=== PATIENT | female | born 1940 | race Caucasian/White ===

== ENCOUNTER → 2016-09-12 | Outpatient (CLI) | payer OTHER ==
--- NOTE | 2016-09-13 07:38 | MAMMOGRAPHY REPORT ---
BILATERAL DIGITAL SCREENING MAMMOGRAM WITH CAD: 09/12/2016 CLINICAL HISTORY: Routine screening examination. TECHNIQUE: Bilateral CC and MLO views were obtained. Current study was also evaluated with a Comput er Aided Detection (CAD) system. COMPARISON: Comparison is made to exams dated: 09/06/2015 mammogram, 08/05/2013 mammogram, 09/01/2014 mammogram, 07/29/2012 mammogram, 07/13/2011 ultrasound - [facility], and 07/11/2010 [facility] mogram. BREAST COMPOSITION: The tissue of both breasts is heterogeneously dense, which may obscure small ma sses. FINDINGS: There is a lobulated asymmetry in the lateral right breast that appears somewhat similar compared to prior mammograms. However, additional spot compression tomosynthesis views and possibly ultrasound are recommended to exclude an underlying mass. A vague 14 mm asymmetry in the inferior left breast on the MLO view may simple represent normal overlapping tissue. However, spot compressi on tomosynthesis views and possibly ultrasound are recommended. No other suspicious mass, architectural distortion or cluster of microcalcifications is seen. IMPRESSION: ACR BI-RADS CATEGORY 0: INCOMPLETE EVALUATION: NEED ADDITIONAL IMAGING EVALUATION The bilateral asymmetries need additional imaging evaluation. The patient will be called to schedule an appointment. Approximately 10% of breast cancers are not detected with mammography. A negative mammographic repor t should not delay biopsy if a clinically suggestive mass is present. Lamar Gurrola M.D. ay/:09/12/2016 18:03:39 House Cleaner: Leah DEE(Clarissa)(Demetrio), [facility] letter sent: Addl Imaging 0 BI-RADS Code: ACR BI-RADS Category 0: Incomplete Evaluation: Need Additional Imaging Evaluation
== END | disposition home or self-care (01) ==
LOC: C.MAMM 09:19
PROVIDERS: ATTEND Nurse Practitioner Family
DX: Z12.31 Encounter for screening mammogram for malignant neoplasm of breast (principal); N64.89 Other specified disorders of breast

== ENCOUNTER → 2016-09-25 | Outpatient (CLI) | payer OTHER ==
--- NOTE | 2016-09-25 13:55 | MAMMOGRAPHY REPORT ---
BILATERAL DIGITAL DIAGNOSTIC MAMMOGRAM TOMOSYNTHESIS AND TARGETED BILATERAL ULTRASOUND: 09/25/2016 CLINICAL HISTORY: 76-year-old woman called back from screening mammography for bilateral asymmetries . TECHNIQUE: Spot compression 2-D digital and tomosynthesis right CC, right MLO and left MLO views wer e obtained. COMPARISON: Comparison is made to exams dated: 09/12/2016 mammogram, 09/06/2015 mammogram, and 09/01/19 15 mammogram - [facility]. BREAST COMPOSITION: The tissue of both breasts is heterogeneously dense, which may obscure small ma sses. FINDINGS: The spot compression MLO view of the left inferior breast demonstrates effacement of the a symmetry seen on the 09/12/2016 screening mammogram. The glandular tissue in that area reverts back to the baseline parenchymal pattern. There is no evidence for persistent mass, focal architectural distortion or suspicious calcifications. Further evaluation with ultrasound was performed. Spot compression views of the right breast demonstrate a partially circumscribed and partially obscu red 6.9 mm mass in the upper outer anterior breast. When comparing back to prior available mammogra ms, this appearance is similar dating back to at least 07/11/2010 and likely 07/06/2008, therefore l ikely benign. There is no focal architectural distortion or suspicious microcalcifications in the r ight breast. Further evaluation with ultrasound was performed. Real-time high resolution sonographic evaluation was performed throughout the right breast including the retroareolar breast, and also throughout the inferior left breast. In the left inferior breast , normal fibroglandular tissue is seen without a discrete solid or cystic mass. In the right 10:00 to 11:00 axes, there is dense fibroglandular tissue. In the 10:00 axis, 2 cm from the nipple, appro ximately 1 cm deep to the dermis, there is an isoechoic solid mass measuring 8.3 x 6.6 mm. This lik elvia correlates with the stable mammographic mass and most likely represents a fibroadenoma. No othe r suspicious solid or cystic mass is identified. IMPRESSION: ACR-BI-RADS CATEGORY 3: PROBABLY BENIGN, TARGETED ULTRASOUND ACR-BI-RADS CATEGORY 3: [place] OBABLY BENIGN 1. Effacement of the inferior left breast asymmetry, no suspicious sonographic correlate. This mos t likely represented normal overlapping fibroglandular tissue. No further follow-up is needed at th is time. 2. Partial effacement of the asymmetry in the upper outer quadrant of the right breast, with better visualized borders of an underlying partially circumscribed and obscured 7 mm mass seen mammographi olga. This is thought to correlate with a benign-appearing solid mass in the 10:00 right breast, 2 cm from the nipple seen on ultrasound. In retrospect, this mass has been stable on all available m ammograms dating back to at least 2007, therefore considered benign. 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 No other suspicious mass is s een in the adjacent right upper outer quadrant mammographically or sonographically. Nevertheless, a short interval follow-up right mammogram including tomosynthesis images and possible repeat ultraso und is recommend to ensure stability in 6 months. These results and recommendations were discussed with the patient at the time of the exam. Approximately 10% of breast cancers are not detected with mammography. A negative mammographic repor t should not delay biopsy if a clinically suggestive mass is present. Lamar Gurrola M.D. ay/:09/25/2016 12:14:23 Hvac Sheet Metal Installer: Leah DEE(Clarissa)(Demetrio), [facility] letter sent: Follow Up Recommended 3 BI-RADS Code: ACR-BI-RADS Category 3: Probably Benign Ultrasound BI-RADS: ACR-BI-RADS Category 3: P robably Benign
== END | disposition home or self-care (01) ==
LOC: C.MAMM 10:20
PROVIDERS: ATTEND Nurse Practitioner Family
DX: N64.89 Other specified disorders of breast (principal)

== ENCOUNTER → 2017-03-29 | Outpatient (CLI) | payer OTHER ==
--- NOTE | 2017-03-29 12:38 | MAMMOGRAPHY REPORT ---
UNILATERAL RIGHT DIGITAL DIAGNOSTIC MAMMOGRAM TOMOSYNTHESIS WITH CAD: 03/29/2017 CLINICAL HISTORY: Short interval follow-up of right breast mass/asymmetry. The patient reports no cu rrent complaints. TECHNIQUE: Breast tomosynthesis in addition to standard 2D mammography was performed. Current study was also evaluated with a Computer Aided Detection (CAD) system. Right CC and MLO 2-D and tomosynthe sis images were obtained. COMPARISON: Comparison is made to exams dated: 09/25/2016 mammogram, 09/25/2016 ultrasound, 09/12/2016 m ammogram, 09/06/2015 mammogram, 09/01/2014 mammogram, and 08/05/2013 mammogram - [facility]. BREAST COMPOSITION: The tissue of the right breast is heterogeneously dense, which may obscure small masses. FINDINGS: There are no suspicious masses, calcifications, or areas of architectural distortion noted in the right breast. There has been no significant interval change compared to prior exams. Oval p artially circumscribed and partially obscured 9 mm mass within the right upper outer quadrant is stab le mammographically dating back to at least the 2007 exam, and considered benign given long-term stab ility. Scattered benign-appearing calcifications are stable. IMPRESSION: ACR BI-RADS CATEGORY 2: BENIGN Partially circumscribed mass in the right upper outer quadrant is stable dating back to 2007, and con sidered benign given long-term stability. There is no mammographic evidence of malignancy in the rig ht breast. Return to annual mammogram screening schedule is recommended, due September 2017. The patient has been verbally notified of the results. Approximately 10% of breast cancers are not detected with mammography. A negative mammographic report should not delay biopsy if a clinically suggestive mass is present. Janell Saleh M.D. /:03/29/2017 10:40:01 Paint Formulator: Lisa DEE(Clarissa)(Demetrio), [facility] letter sent: Normal 1/2 BI-RADS Code: ACR BI-RADS Category 2: Benign
== END | disposition home or self-care (01) ==
LOC: C.MAMM 10:17
PROVIDERS: ATTEND Nurse Practitioner Family
DX: N63 Unspecified lump in breast (principal)

== ENCOUNTER → 2017-04-18 | Outpatient (CLI) | payer OTHER ==
--- NOTE | 2017-04-18 10:56 | DIAGNOSTIC IMAGING REPORT ---
LUMBAR SPINE 5 VIEWS CLINICAL HISTORY: Chronic low back pain. FINDINGS: Five views of the lumbar spine are correlated with abdominal CT dated 09/08/2011. The skeletal structures are osteopenic. There is moderate to severe lumbar dextrocurvature centered at L3. There are anterior and large lateral marginal osteophytes. Vertebral body height and alignment are maintained. Facet arthropathy is seen in the mid to lower lumbar region. The transverse and spinous processes appear intact. There is no evidence of spondylolysis. Advanced disc space narrowing is seen at L1-L2, L2-L3, and L3-L4 with endplate sclerosis at these levels. Mild disc space narrowing is seen at L4-L5 and L5-S1. The bony pelvis appears intact. Sclerotic change is noted in the sacroiliac joints. There are numerous pelvic phleboliths. There is a nonobstructed abdominal bowel gas pattern noting moderate constipation. Advanced atherosclerotic calcification is seen in the abdominal aorta. IMPRESSION: 1. No acute bony abnormality is seen involving the lumbosacral spine. 2. Osteopenia with advanced lumbosacral spondylosis and scoliosis as above. Dictated: 04/18/2017 10:35 AM Transcribed: 04/18/2017 10:56 AM [facility] Electronically signed by: Kranthi Samuels M.D. 04/18/2017 11:11 AM Dictated Date/Time: 04/18/2017 10:35 AM
== END | disposition home or self-care (01) ==
LOC: C.RAD1850 10:16
PROVIDERS: ATTEND Nurse Practitioner Family
DX: M54.5 Low back pain (principal); M85.88 Other specified disorders of bone density and structure, other site; M47.817 Spondylosis without myelopathy or radiculopathy, lumbosacral region

== ENCOUNTER → 2017-09-18 | Outpatient (CLI) | payer OTHER ==
--- NOTE | 2017-09-18 15:12 | MAMMOGRAPHY REPORT ---
BILATERAL DIGITAL SCREENING MAMMOGRAM TOMOSYNTHESIS WITH CAD: 09/18/2017 CLINICAL HISTORY: Routine screening. Patient has no complaints. TECHNIQUE: Breast tomosynthesis in addition to standard 2D mammography was performed. Current study was also evaluated with a Computer Aided Detection (CAD) system. COMPARISON: Comparison is made to exams dated: 09/25/2016 mammogram, 09/12/2016 mammogram, 09/06/2015 ma mmogram, 09/01/2014 mammogram, 08/05/2013 mammogram, and 08/01/2012 mammogram - [facility]. BREAST COMPOSITION: The tissue of both breasts is heterogeneously dense, which may obscure small mas ses. FINDINGS: There is a stable partially circumscribed and obscured 9 mm mass in the upper outer right b reast. Scattered benign coarse calcifications. No new suspicious mass, architectural distortion or cluster of microcalcifications is seen. IMPRESSION: ACR BI-RADS CATEGORY 1: NEGATIVE There is no mammographic evidence of malignancy. A 1 year screening mammogram is recommended. The pa tient will receive written notification of the results. Approximately 10% of breast cancers are not detected with mammography. A negative mammographic report should not delay biopsy if a clinically suggestive mass is present. Lamar Gurrola M.D. ay/:09/18/2017 14:31:17 Hot Dip Plating Supervisor: Leah DEE(Clarissa)(Demetrio), [facility] letter sent: Normal 1/2 BI-RADS Code: ACR BI-RADS Category 1: Negative
== END | disposition home or self-care (01) ==
LOC: C.MAMM 09:32
PROVIDERS: ATTEND Nurse Practitioner Family
DX: Z12.31 Encounter for screening mammogram for malignant neoplasm of breast (principal)

== ENCOUNTER 2023-12-27 08:37 | Observation (INO) ==
[2023-12-27] MEDS: SODIUM CHLORIDE 0.9% 1,000 ML IV ONE (09:04)
[2023-12-27 09:10] LABS: Basophils # (auto) 0.01 K/uL (0.00-0.20); Basophils % (auto) 0.1 %; Eosinophils # (auto) 0.01 K/uL (0.00-0.50); Eosinophils % (auto) 0.1 %; Hematocrit (blood only) 33.9 % (37.0-47.0); Hemoglobin 11.2 g/dl (12.0-16.0); Immature Granulocytes # (auto) 0.06 K/uL (0.01-0.20); Immature Granulocytes % (auto) 0.5 %; Lymphocytes # (auto) 0.91 K/uL (1.20-3.40); Lymphocytes % (auto) 8.2 %; Mean Corpuscular Hemoglobin 29.3 pg (25.0-34.0); Mean Corpuscular Volume 88.7 fL (80.0-100.0); Monocytes # (auto) 0.55 K/uL (0.11-0.59); Neutrophils # (auto) 9.57 K/uL (1.40-6.50); Neutrophils % (auto) 86.1 %; Platelet Count 232 K/uL (130-400); RDW Coefficient of Variation 13.2 % (11.5-14.5); RDW Standard Deviation 42.7 fL (36.4-46.3); Red Blood Count 3.82 M/uL (4.20-5.40); White Blood Count 11.11 K/ul (4.8-10.8)
--- NOTE | 2023-12-27 09:11 | XRay Report ---
XR chest 1V portable CLINICAL HISTORY: Chest pain, nonspecific TECHNIQUE: Single frontal radiograph of the chest was obtained. Comparison: Comparison is made to chest radiograph 12/02/2019 FINDINGS: No lines and tubes are seen. Calcified aortic knob is seen. The lungs are clear. No evidence of pleur al effusion or pneumothorax. IMPRESSION: No acute chest disease. ACT 112: Negative or not required by law. Electronically signed by: Jaime Farr M.D. 12/27/2023 9:09 AM
[2023-12-27 09:20] LABS: Albumin Globulin Ratio 1.5 (0.9-2); Albumin Level 4.1 gm/dl (3.4-5.0); BUN Creatinine Ratio 22.3 (10-20); Bilirubin,Total 0.4 mg/dl (0.2-1.0); Calcium 9.1 mg/dl (8.6-10.3); Creatinine Clr Calc Pharmacy 24.7 ml/min; Est GFR (African American) 38.1 ml/min; Est GFR (Non-African American) 32.9 ml/min; Globulin 2.8 gm/dl (2.5-4.0); Potassium 4.4 mmol/L (3.5-5.1); Total Protein 6.9 gm/dl (6.0-8.3)
[2023-12-27 09:25] LABS: Troponin I High Sensitivity 13.3 pg/ml (0-14)
--- NOTE | 2023-12-27 09:37 | Emergency Department Note ---
Impression & Plan MERVAT (acute kidney injury), Chest pain, Acute dyspnea ED Provider Note NAME: ANAM SIEGEL AGE: 83 SEX: F : 1940 ARRIVES VIA: Walk-In INFORMANT: Patient, ED PROVIDER(S): Sterling Paz MD CHIEF COMPLAINT: Chest discomfort, nausea, vomiting HPI: This is a an 83-year-old female history of recurrent UTIs presenting for chest discomfort. Patient that last night she was walking in the heat and [facility] through she began feeling chest discomfort. She notes that is a pressure-like sensation without pain. Notes that she had to walk home and took an inhaler. Does not fully resolve her symptoms. This morning she woke up and had transient vertigo when sitting up. She began having some diarrhea as well as slight nausea without vomiting. She does. She has had palpitations and is well-controlled on medication. No history of tachycardia dysrhythmias previously. ROS: See above HPI for pertinent positives & negatives. A total of 10 systems reviewed and were otherwise negative. PHYSICAL EXAMINATION: General: resting comfortably in no acute distress Head: Normocephalic and atraumatic Eyes: Normal inspection, extraocular muscles intact Ear, nose, throat: Normal external exam Neck: Normal range of motion Respiratory: lungs clear to auscultation bilaterally Cardiovascular: Regular rate/rhythm, no murmur GI: soft, nontender, no guarding or rebound Extremities: nontender, moves all extremities Neuro: The patient awake and alert, appropriately conversive, no focal deficits, symmetric faces Skin: Warm, dry, and intact MEDICAL DECISION MAKING: This is a pleasant 83-year-old female presenting for chest discomfort. Patient did note she was out walking in the extreme heat yesterday when the symptoms began. She notes slight nausea with diarrhea today. Slight chest discomfort. Consider ACS, PE, dehydration, heat exhaustion. -Blood work is reviewed showing a WC of 11. Hemoglobin is 11.2. Otherwise slightly hyponatremic 131 - creatinine is elevated at 1.4, almost doubled previous baseline. Troponin initially negative, will do delta to ensure stability. -Repeat troponin is flat at this time. -ECG independently interpreted by me with sinus rhythm versus a primary junctional rhythm, rate of 66, normal axis, normal QRS, normal QTc, no ST segment elevations consistent with STEMI criteria -Patient notes she still feels some short of breath. Otherwise her creatinine is elevated, will requiring mission for MERVAT. -Discussed care with ALEXEI Galaviz PA-C, hospitalist Differential diagnosis: ACS, PE, exertion, dehydration, MERVAT ER treatment provided: See below Diagnostics interpreted by me: ECG: See above Cardiac Monitoring: An order was placed for continuous cardiac monitoring. The monitor shows a rate of 62 with sinus rhythm. Laboratory studies: As stated above and show below. Imaging studies: See below. Past Med/Surg History Problem List (Updated 12/27/23 @ 14:53 by Sterling Paz MD) Acute dyspnea (Acute) Chest pain (Acute) MERVAT (acute kidney injury) (Acute) Vertigo UTI (urinary tract infection) Asthma exacerbation MERVAT (acute kidney injury) Hyponatremia Chest pressure Vaginal prolapse Renal cyst Recurrent UTI URI (upper respiratory infection) H/O: HTN (hypertension) HLD (hyperlipidemia) Rhinitis Ventricular dilatation Seborrhea Scoliosis Nocturia Microhematuria Breast CA Lactose intolerance Keratoacanthoma Basal cell carcinoma Glucosuria Flatulence Fecal incontinence Skin cancer Esophageal reflux Eczema Diverticulosis DDD (degenerative disc disease) Changing skin lesion Tachycardia Asthma Actinic keratoses Medical History (Updated 12/27/23 @ 14:53 by Sterling Paz MD) Cataract Hx of mammogram Surgical History (Updated 03/03/22 @ 11:00 by Linda Renee) S/P tubal ligation Hx of appendectomy S/P skin biopsy H/O dilation and curettage Hx of colonoscopy H/O: hysterectomy Family History (Updated 03/03/22 @ 11:01 by Linda Renee) Sister Breast cancer Mother Cancer Hypertension Son Celiac disease Daughter Celiac disease Social History (Updated 03/03/22 @ 11:02 by Linda Renee) Smoking Status: Never smoker Hx Alcohol Use: Yes Hx Substance Use: No Current Living Situation: Family current occupational status: employed Feels Safe at Home: Yes Allergies Allergies Allergy/AdvReac Type Severity Reaction Status Date / Time latex Allergy ITCHY RASH Verified 10/23/23 10:29 Home Meds Home Medications Medication Instructions Recorded Confirmed albuterol sulfate 90 mcg/actuation 2 puff inhalation UD PRN Shortness 03/25/20 12/27/23 aerosol inhaler Of Breath Or Wheezing atorvastatin 20 mg tablet (Lipitor) 20 mg PO DAILY 03/25/20 12/27/23 diltiazem HCl 180 mg 180 mg PO DAILY 03/25/20 12/27/23 capsule,extended release 24 hr (Cartia XT) loratadine 10 mg tablet (Claritin) 10 mg PO DAILY PRN ALLERGIES 03/25/20 12/27/23 esomeprazole magnesium 40 mg 40 mg PO DAILY 03/02/22 12/27/23 capsule,delayed release mupirocin 2 % topical ointment 1 applic topical UD 03/02/22 12/27/23 triamcinolone acetonide 0.025 % 1 applic topical UD 03/02/22 12/27/23 topical cream budesonide-formoterol HFA 160 2 puff inhalation UD 10/19/22 12/27/23 mcg-4.5 mcg/actuation aerosol inhaler (Symbicort) alendronate 70 mg tablet 70 mg PO WK 12/27/23 12/27/23 spironolactone 25 mg tablet 25 mg PO DAILY 12/27/23 12/27/23 sulfamethoxazole 800 1 tab PO BID 12/27/23 12/27/23 mg-trimethoprim 160 mg tablet valsartan 320 mg tablet 320 mg PO DAILY 12/27/23 12/27/23 Results & Data (ED) Vital Signs Vital Signs - 24 hr 12/27/23 08:41 12/27/23 09:03 12/27/23 09:39 Temperature 36.4 C L Temperature Source Temporal Artery Scan Pulse Rate 71 69 57 L Pulse Rate [Left Apical] Respiratory Rate 20 21 16 Respiratory Effort / Characteristics Non-Labored Spontaneous Respiratory Depth Normal Blood Pressure 114/63 138/58 L 108/77 Blood Pressure [Right Arm] Blood Pressure Mean 80 84 87 Blood Pressure Mean [Right Arm] Blood Pressure Position [Right Arm] Pulse Oximetry 97 96 94 Oxygen Delivery Method Room Air Room Air Room Air Sepsis Recent Fever Within 48 Hours No Sepsis New/Unexplained Change in Mental Status No Sepsis Action Taken by Nursing No Action Required 12/27/23 11:21 12/27/23 12:00 12/27/23 13:27 Temperature Temperature Source Pulse Rate 60 70 Pulse Rate [Left Apical] 60 Respiratory Rate 18 16 18 Respiratory Effort / Characteristics Non-Labored Spontaneous Respiratory Depth Normal Blood Pressure 132/58 L 170/75 H Blood Pressure [Right Arm] 125/45 L Blood Pressure Mean 82 106 Blood Pressure Mean [Right Arm] 71 Blood Pressure Position [Right Arm] Lying Pulse Oximetry 94 94 93 Oxygen Delivery Method Room Air Room Air Room Air Sepsis Recent Fever Within 48 Hours Sepsis New/Unexplained Change in Mental Status Sepsis Action Taken by Nursing 12/27/23 14:30 Temperature Temperature Source Pulse Rate 62 Pulse Rate [Left Apical] Respiratory Rate 16 Respiratory Effort / Characteristics Respiratory Depth Blood Pressure 128/72 Blood Pressure [Right Arm] Blood Pressure Mean 90 Blood Pressure Mean [Right Arm] Blood Pressure Position [Right Arm] Pulse Oximetry 93 Oxygen Delivery Method Room Air Sepsis Recent Fever Within 48 Hours Sepsis New/Unexplained Change in Mental Status Sepsis Action Taken by Nursing Laboratory Data 12/27/23 08:50 12/27/23 08:50 Lab Results 12/27/23 12/27/23 Range/Units 08:50 11:10 WBC 11.11 H (4.8-10.8) K/ul RBC 3.82 L (4.20-5.40) M/uL Hgb 11.2 L (12.0-16.0) g/dl Hct 33.9 L (37.0-47.0) % MCV 88.7 (80.0-100.0) fL MCH 29.3 (25.0-34.0) pg MCHC 33.0 (32.0-36.0) g/dL RDW Std Deviation 42.7 (36.4-46.3) fL RDW Coeff of Isabela 13.2 (11.5-14.5) % Plt Count 232 (130-400) K/uL MPV 9.0 L (9.4-12.4) fL Immature Gran % (Auto) 0.5 % Neut % (Auto) 86.1 % Lymph % (Auto) 8.2 % [place] % (Auto) 5.0 % Eos % (Auto) 0.1 % Baso % (Auto) 0.1 % Neut # (Auto) 9.57 H (1.40-6.50) K/uL Lymph # (Auto) 0.91 L (1.20-3.40) K/uL [place] # (Auto) 0.55 (0.11-0.59) K/uL Eos # (Auto) 0.01 (0.00-0.50) K/uL Baso # (Auto) 0.01 (0.00-0.20) K/uL Immature Gran # (Auto) 0.06 (0.01-0.20) K/uL Sodium 131 L (136-145) mmol/L Potassium 4.4 (3.5-5.1) mmol/L Chloride 100 (98-107) mmol/L Carbon Dioxide 20 L (21-32) mmol/L Anion Gap 11 (3-11) BUN 33 H (6-23) mg/dl Creatinine 1.48 H (0.6-1.2) mg/dl Est Cr Clr Drug Dosing 24.7 ml/min Est GFR ( Amer) 38.1 ml/min Est GFR (Non-Af Amer) 32.9 ml/min BUN/Creatinine Ratio 22.3 H (10-20) Glucose 146 H (70-99(Fasting)) mg/dl Calcium 9.1 (8.6-10.3) mg/dl Total Bilirubin 0.4 (0.2-1.0) mg/dl AST 41 H (13-39) U/L ALT 43 (7-52) U/L Alkaline Phosphatase 57 (34-104) U/L Troponin I High Sens 13.3 14.3 H (0-14) pg/ml Total Protein 6.9 (6.0-8.3) gm/dl Albumin 4.1 (3.4-5.0) gm/dl Globulin 2.8 (2.5-4.0) gm/dl Albumin/Globulin Ratio 1.5 (0.9-2) Lipase 27 (11-82) U/L Administered Medications Lactated Ringer's (Lr) 1,000 mls @ 100 mls/hr IV .Q10H MILENA Stop: 12/28/23 09:59 Last Admin: 12/27/23 14:00 Dose: 100 mls/hr Documented By: JC Discontinued Medications Sodium Chloride (Nss) 1,000 mls @ 999 mls/hr IV .Q1H1M ONE Stop: 12/27/23 09:52 Last Infusion: 12/27/23 10:12 Dose: Infused Documented By: Admin: 12/27/23 09:04 Dose: 999 mls/hr Documented By: JC Imaging Data Radiologist's Impression: Chest X-Ray 12/27/23 08:52 XR chest 1V portable CLINICAL HISTORY: Chest pain, nonspecific TECHNIQUE: Single frontal radiograph of the chest was obtained. Comparison: Comparison is made to chest radiograph 12/02/2019 FINDINGS: No lines and tubes are seen. Calcified aortic knob is seen. The lungs are clear. No evidence of pleural effusion or pneumothorax. IMPRESSION: No acute chest disease. ACT 112: Negative or not required by law. Electronically signed by: Jaime Farr M.D. 12/27/2023 9:09 AM Discharge Plan Visit Data Chief Complaint: Cardiac Assessment Stated Complaint: CHEST PRESSURE, SOB, DIARRHEA, VERTIGO ED Provider: Sterling Paz Discharge Problem: MERVAT (acute kidney injury), Chest pain, Acute dyspnea Forms Stand Alone Forms: [employer] Prescriptions Prescriptions: No Action mupirocin 2 % ointment 1 applic topical UD Rx Instructions: no record with pharmacy 12/27/23 triamcinolone acetonide 0.025 % cream 1 applic topical UD Rx Instructions: last filled 2 years ago esomeprazole magnesium 40 mg capsule,delayed release(DR/EC) 40 mg PO DAILY Rx Instructions: otc unable to verify budesonide-formoterol [Symbicort] 160-4.5 mcg/actuation HFA aerosol inhaler 2 puff inhalation UD Rx Instructions: no record with pharmacy 12/27/23 atorvastatin [Lipitor] 20 mg tablet 20 mg PO DAILY diltiazem HCl [Cartia XT] 180 mg capsule,extended release 24hr 180 mg PO DAILY albuterol sulfate 90 mcg/actuation HFA aerosol inhaler 2 puff INHALATION UD PRN (Reason: Shortness Of Breath Or Wheezing) Rx Instructions: no record with pharmacy 12/27/23 loratadine [Claritin] 10 mg Tablet 10 mg PO DAILY PRN (Reason: ALLERGIES) Rx Instructions: otc unable to verify alendronate 70 mg tablet 70 mg PO WK sulfamethoxazole-trimethoprim 800-160 mg tablet 1 tab PO BID spironolactone 25 mg tablet 25 mg PO DAILY valsartan 320 mg tablet 320 mg PO DAILY Referrals Referrals: Bianca Quiroga [Primary Care Provider] -
--- NOTE | 2023-12-27 12:46 | History & Physical Report ---
Date of Service December 27, 2023 Assessment & Plan (1) Asthma exacerbation: Plan: Chest pressure while walking in the heat the evening of 12/25; continued throughout the night Patient then woke up the next morning experienced vertigo, nausea, and dry heaves Mild leukocytosis at 11.11 with a neutrophil predominance; afebrile Troponin WNL x 2 on arrival (13.3-->14.3); trend q6h x 2 EKG revealed BioFire ordered, pending DuoNeb 3 mL QIDR as needed for wheezing Patient would like to be discharge on a new albuterol inhaler if possible Continuous pulse oximetry Supplemental oxygen as needed to maintain SpO2 >94% A.m. CBC, BMP, mag (2) Chest pressure: Plan: No history of CHF to patient's knowledge Echocardiogram ordered, pending Trending serial troponin and ECG (3) MERVAT (acute kidney injury): Plan: BUN 33, Cr 1.48 (baseline around 0.71), EGFR 32.9 Suspect secondary to dehydration + recent Bactrim use outpatient for UTI Avoid nephrotoxic agents for possible IVF resuscitation with LR at 100mL/hr x 2 Hold Bactrim, valsartan, and spironolactone (4) Hyponatremia: Plan: Mild; Na 131 on arrival IVF resuscitation (as above) Recheck a.m. BMP (5) UTI (urinary tract infection): Plan: Urinalysis ordered, pending Patient was on Bactrim outpatient for UTI Suspect this is the cause of her MERVAT and diarrhea D/C Bactrim (6) Vertigo: Plan: Meclizine 12.5mg p.o. q6h as needed for dizziness/vertigo Plan Disposition: Obs - Admit to [facility] Tele Full code Heart healthy diet VTE PPx: Heparin 5000u SQ q12h History of Present Illness Chief Complaint: Chest pressure Primary Care Provider: Biancaisreal Jallohkai Echevarria is a pleasant 83-year-old female with PMH of asthma, DDD, breast cancer, esophageal reflux, HLD, HTN, and scoliosis. She developed chest pressure and TANG around 9 PM on 12/25 while walking outside in the heat. She could feel the pressure building up in her chest, and this pressure remained while she was trying to sleep throughout the night. Patient cannot lie flat, and had to sleep on her side. She endorses both SOB at rest and with exertion. She does have a history of asthma, but notes that her rescue inhaler is . She does not use supplemental oxygen at home, or CPAP at night. She reports she took all of her regular morning medications this morning. She also notes that she has been taking Bactrim over the past few days for a UTI, and believes that her episode of diarrhea this morning was secondary to that. She also notes she had vertigo upon waking, as well as nausea and some dry heaves. She does have a history of vertigo, which she reports occurs when she gets sick. No falls, fainting, or injuries to the chest wall. She denies any recent sick contacts, but she does live in a senior home and is unsure. No PMH of COPD, DVT/PE, TN, or CVA. Patient denies smoking, tobacco use, or recent alcohol use. Patient's vitals are stable at time of admission. ED course: NSS 1000 mL IV ROS: Patient endorses dizziness upon standing (hx of vertigo), cold intolerance, chest pressure, SOB at rest and with exertion, orthopnea, dry cough (which patient attributes to allergies), nausea, dry heaves, diarrhea x 1 episode, burning with urination (patient is on bactrim), Patient denies fever, sweating, rashes, tickbites, fainting, chest pain, chest palpitations, pleuritic CP, hemoptysis, abdominal pain, vomiting, blood in stool/urine, melena, dysuria, saddle anesthesia, or numbness/tingling in the arms or legs. Allergies Allergy/AdvReac Type Severity Reaction Status Date / Time latex Allergy ITCHY RASH Verified 10/23/23 10:29 Home Medications Medication Instructions Recorded Confirmed Type albuterol sulfate 90 mcg/actuation 2 puff inhalation UD PRN Shortness 03/25/20 12/27/23 History aerosol inhaler Of Breath Or Wheezing atorvastatin 20 mg tablet (Lipitor) 20 mg PO DAILY 03/25/20 12/27/23 History diltiazem HCl 180 mg 180 mg PO HS 03/25/20 12/27/23 History capsule,extended release 24 hr (Cartia XT) loratadine 10 mg tablet (Claritin) 10 mg PO DAILY PRN ALLERGIES 03/25/20 12/27/23 History esomeprazole magnesium 40 mg 40 mg PO DAILY 03/02/22 12/27/23 History capsule,delayed release mupirocin 2 % topical ointment 1 applic topical UD 03/02/22 12/27/23 History triamcinolone acetonide 0.025 % 1 applic topical UD 03/02/22 12/27/23 History topical cream budesonide-formoterol HFA 160 2 puff inhalation UD 10/19/22 12/27/23 History mcg-4.5 mcg/actuation aerosol inhaler (Symbicort) alendronate 70 mg tablet 70 mg PO WK 12/27/23 12/27/23 History spironolactone 25 mg tablet 25 mg PO DAILY 12/27/23 12/27/23 History sulfamethoxazole 800 1 tab PO BID 12/27/23 12/27/23 History mg-trimethoprim 160 mg tablet valsartan 320 mg tablet 320 mg PO DAILY 12/27/23 12/27/23 History Past Med/Surg History Problem List (Updated 12/27/23 @ 14:53 by Sterling Pza MD) Acute dyspnea (Acute) Chest pain (Acute) MERVAT (acute kidney injury) (Acute) Vertigo UTI (urinary tract infection) Asthma exacerbation MERVAT (acute kidney injury) Hyponatremia Chest pressure Vaginal prolapse Renal cyst Recurrent UTI URI (upper respiratory infection) H/O: HTN (hypertension) HLD (hyperlipidemia) Rhinitis Ventricular dilatation Seborrhea Scoliosis Nocturia Microhematuria Breast CA Lactose intolerance Keratoacanthoma Basal cell carcinoma Glucosuria Flatulence Fecal incontinence Skin cancer Esophageal reflux Eczema Diverticulosis DDD (degenerative disc disease) Changing skin lesion Tachycardia Asthma Actinic keratoses Medical History (Updated 12/27/23 @ 14:53 by Sterling Paz MD) Cataract Hx of mammogram Surgical History (Updated 03/03/22 @ 11:00 by Linda Renee) S/P tubal ligation Hx of appendectomy S/P skin biopsy H/O dilation and curettage Hx of colonoscopy H/O: hysterectomy Family History (Updated 03/03/22 @ 11:01 by Linda Renee) Sister Breast cancer Mother Cancer Hypertension Son Celiac disease Daughter Celiac disease Social History (Updated 03/03/22 @ 11:02 by Linda Renee) Smoking Status: Former smoker Hx Alcohol Use: No Hx Substance Use: No Preferred Language: Palauan Communication Ability: Effective Development Executive Required: No Beliefs That Will Affect Care: None Current Living Situation: Alone current occupational status: employed Other Information That Helps Us Care for You: No Feels Safe at Home: Yes Safety Concerns: Feels Safe At This Time Assistive Devices: Glasses and Hearing Aid - Left Review of Systems Review of Systems: See HPI above Physical Exam Physical Exam: General: no acute distress; pleasant affect; non-toxic appearing; well- nourished; cooperative; SpO2 94% on RA HEENT: normocephalic, atraumatic; no scleral icterus; PERRLA; left sclera erythematous; dry mucus membrane; vision and hearing grossly intact; cerumen impaction of the left ear; right TM visualized with pearly mcneill membrane Neck: supple; no lymphadenopathy; trachea midline Skin: warm, dry without signs of tenting; no cyanosis; no rashes, bruising, lesions, or erythema noted CV: chest wall NTP; pain/pressure is not reproducible on exam; RRR; S1/S2 normal; no murmurs/rubs/gallops; pulses intact and symmetric at radial, DP, and PT Lungs: no acute respiratory distress; symmetrical chest wall expansion; clear breath sounds across all lung enrique w/o adventitious sounds; no wheezing ABD: Soft, NTP; BS present; no rebound/guarding; no distention; no rashes or bruising on the abdomen or flanks MSK: no tics or fasciculations; no edema noted in the LEs b/l, nonerythematous Neuro: A&Ox3; normal mood and affect; fluent speech; no focal deficits; sensation grossly intact in the LEs b/l Results & Data Results & Data Vital Signs (Past 12 Hours) Vital Signs Temp Pulse Pulse Resp BP BP Pulse Ox 12/27/23 12:00 60 16 125/45 L 94 12/27/23 11:21 60 18 132/58 L 94 12/27/23 09:39 57 L 16 108/77 94 12/27/23 09:03 69 21 138/58 L 96 12/27/23 08:41 36.4 C L 71 20 114/63 97 O2 Del Method 12/27/23 12:00 Room Air 12/27/23 11:21 Room Air 12/27/23 09:39 Room Air 12/27/23 09:03 Room Air 12/27/23 08:41 Room Air Laboratory Results Abnormal lab results 12/27/23 12/27/23 Range/Units 08:50 11:10 WBC 11.11 H (4.8-10.8) K/ul RBC 3.82 L (4.20-5.40) M/uL Hgb 11.2 L (12.0-16.0) g/dl Hct 33.9 L (37.0-47.0) % MPV 9.0 L (9.4-12.4) fL Neut # (Auto) 9.57 H (1.40-6.50) K/uL Lymph # (Auto) 0.91 L (1.20-3.40) K/uL Sodium 131 L (136-145) mmol/L Carbon Dioxide 20 L (21-32) mmol/L BUN 33 H (6-23) mg/dl Creatinine 1.48 H (0.6-1.2) mg/dl BUN/Creatinine Ratio 22.3 H (10-20) Glucose 146 H (70-99(Fasting)) mg/dl AST 41 H (13-39) U/L Troponin I High Sens 14.3 H (0-14) pg/ml Diagnostic Findings Chest X-Ray 12/27/23 08:52 XR chest 1V portable CLINICAL HISTORY: Chest pain, nonspecific TECHNIQUE: Single frontal radiograph of the chest was obtained. Comparison: Comparison is made to chest radiograph 12/02/2019 FINDINGS: No lines and tubes are seen. Calcified aortic knob is seen. The lungs are clear. No evidence of pleural effusion or pneumothorax. IMPRESSION: No acute chest disease. ACT 112: Negative or not required by law. Electronically signed by: Jaime Farr M.D. 12/27/2023 9:09 AM ECG Additional Comments: EKG revealed accelerated junctional rhythm on arrival Repeat EKG ordered to assess for P waves Code Status & VTE Plan Code Status Full code VTE Prophylaxis Plan VTE Prophylaxis will be ordered: Yes Supervising Physician Co-Signing Physician Notes MARILYN Supervision Note: I personally saw and examined the patient. I verified all graham points and agree with MARILYN Ojeda with the following exceptions and/or additions: S-this patient is an 83-year-old female with a history of HTN, lone atrial fibrillation, hyperlipidemia, osteoporosis, asthma, GERD, who presents to the ER with chest pressure and mild shortness of breath that started yesterday evening after going for a walk in the extreme heat. The chest pressure has been constant but is improved from previous. She denies any recent long travel or surgical procedures, no leg swelling or calf pain. She recently was treated for UTI with Bactrim. She also had 2 episodes of diarrhea this morning and felt very dehydrated afterwards and felt dizzy like the room was spinning which went away with putting her head between her knees. In the ER, she was found to have hyponatremia, acute kidney injury, and accelerated junctional rhythm on ECG and a very minimally elevated troponin at 14.3. Her blood pressure was normal to mildly elevated and she was not hypoxic or tachycardic. A chest x-ray was negative and she was given IV fluids for dehydration. History and ROS otherwise reviewed as above She will be admitted for further cardiac workup of her chest pressure as well as for acute kidney injury and dehydration O- Vitals reviewed Gen: AAOx3, NAD HEENT: Anicteric sclerae, EOMI CV: RRR no mgr nl S1S2 Pulm: CTAB no wcr Abd: +BS soft NT ND no masses or hernias Ext: No edema Skin: No rashes, warm/dry Neuro: Full strength throughout CBC, BMP, LFTs, troponin, lipase, urinalysis, viral respiratory BioFire panel all reviewed ECG x 2 reviewed A/[id number]-old female history as above, here with atypical chest pressure junctional rhythm, acute kidney injury and hyponatremia Agree with hydration and holding spironolactone, valsartan, and Bactrim for acute kidney injury and hyponatremia. Likely secondary to walking in the extreme heat yesterday. For her chest pressure it is atypical but her troponin is mildly elevated, no ischemic changes on ECG but with accelerated junctional rhythm on ECG and on telemetry. The first ECG perhaps shows very subtle P waves but the second ECG I cannot see any P waves Consult cardiology for further evaluation Trend serial troponin until peaks Echocardiogram reviewed with preserved EF Check CT angiogram of the chest if 6 repeat creatinine is improved after hydration-need to rule out PE PG Care Time/CCT Total # of Minutes Spent Total Time Spent with Patient: Total time spent is greater than 50% in coordination of care (as documented) at patient's floor/unit and/or counseling patient: [place] [address] INT INP/OBS CARE MIN Patient Type New Medical Decision Making Moderate Complexity Diagnoses Asthma exacerbation J45.901 Chest pressure R07.89 MERVAT (acute kidney injury) N17.9 Hyponatremia E87.1 UTI (urinary tract infection) N39.0 Vertigo R42
--- OUTSIDE RECORDS SUMMARY | 2023-12-27 12:55 | External Medical Summary | Continuity of Care Document ---
Author Name Unknown Organization [address] [id number] Care Team Providers Care Supplier Development Manager Name Role Phone Bianca Quiroga Primary Care Physician [phone] Encounter [facility] [id number] Date(s): 12/24/23 - 12/24/[address] [address] [phone] Encounter Diagnosis Urinary frequency(Discharge Diagnosis) - 12/24/23 Frequency of micturition(Final) - Discharge Disposition: Home or Self Care Attending Physician: [place] Lal Danielle B Allergies, Adverse Reactions, Alerts Substance Criticality Severity Reaction Reaction Severity Status Latex rash Active Allergy Not found in Search 1, 2, 3 Itching Active 1seasonal allergies 2itchy hands and eyes. sob at times with prolonged exposure 3allergic to print dye--itching on hands Immunizations Given and Recorded Vaccine Date Status Refusal Reason RSV vaccine preF3, recombinant 07/06/23 Recorded SARS-CoV-2 (COVID-19) mRNA-vacc - [id number] 04/30/23 Recorded pneumococcal 13-valent vaccine 04/23/23 Recorded pneumococcal 13-valent vaccine 06/19/14 Given influenza virus vaccine, inactivated 04/08/23 Malik rded influenza virus vaccine, inactivated 03/17/22 Malik rded influenza virus vaccine, inactivated 03/17/22 Malik rded influenza virus vaccine, inactivated 03/16/21 Malik rded influenza virus vaccine, inactivated 1 03/29/20 Re corded influenza virus vaccine, inactivated 04/04/19 Give n influenza virus vaccine, inactivated 04/04/18 Malik rded influenza virus vaccine, inactivated 04/17/17 Give n influenza virus vaccine, inactivated 04/14/16 Give n influenza virus vaccine, inactivated 04/13/15 Give n influenza virus vaccine, inactivated 04/08/14 Malik rded tetanus/diphtheria/pertuss, acel (Tdap) 02/10/23 R ecorded SARS-CoV-2 mRNA (Pfizer 12+) bivalent 04/12/22 Rec orded SARS-CoV-2 mRNA (Pfizer 12+) bivalent 2 04/12/22 R ecorded SARS-CoV-2 mRNA ([id number]) 3 11/04/21 Recorded SARS-CoV-2 (COVID-19) mRNA BNT-162b2 vax 4 04/07/21 Recorded SARS-CoV-2 (COVID-19) mRNA BNT-162b2 vax 5 09/15/20 Recorded SARS-CoV-2 (COVID-19) mRNA BNT-162b2 vax 6 08/25/20 Recorded zoster vaccine, inactivated 11/21/19 Recorded zoster vaccine, inactivated 05/22/19 Recorded zoster vaccine live 07/07/16 Recorded pneumococcal 23-valent vaccine 09/18/06 Recorded 1Result Comment: Zabrina Ortez 2Result Comment: 2022-04-12: Historical information-source unspecified 3Result Comment: 2022-03-17: Historical information-source unspecified 4Result Comment: 2022-03-17: Historical information-source unspecified 5Result Comment: 2021-03-15: Historical information-source unspecified 6Result Comment: 2021-03-15: Historical information-source unspecified Medications atorvastatin 20 mg oral tablet Start: 09/24/23 7:55:00 PM EDT, 1 tab, PO, Daily, Disp# 90 tab, Refills: 3, Pharmacy: [id number] Start Date: 09/24/23 Stop Date: 09/18/24 Status: Ordered Bactrim DS 800 mg-160 mg oral tablet Start: 12/24/23 11:20:00 AM EDT, 1 tab, PO, bid, Disp# 10 tab, X 5 day, Stop: 12/29/23 11:20:00 AM EDT, Pharmacy: [id number] Start Date: 12/24/23 Stop Date: 12/29/23 Status: Ordered Calcium 600+D Start: 06/20/11 8:36:00 AM EST, 1 tab, PO, Daily Start Date: 06/20/11 Status: Ordered Cardizem CD 180 mg/24 hours oral capsule, extended release Start: 02/15/23 11:23:00 AM EDT, 1 cap, PO, Daily, Disp# 90 cap, Refills: 3, Pharmacy: [id number] Start Date: 02/15/23 Status: Ordered Claritin Start: 04/14/16 9:00:00 AM EDT, 10 mg =, PO, Daily Start Date: 04/14/16 Status: Ordered Flax Seed Oil oral capsule Start: 06/20/11 8:37:00 AM EST, 1,200 mg =, PO, Daily Start Date: 06/20/11 Status: Ordered Flonase 50 mcg/inh nasal spray Start: 08/02/20 2:36:00 PM EST, 1 spray, each nostril, Daily, Disp# 16 g, Pharmacy: [id number] Start Date: 08/02/20 Status: Ordered Fosamax 70 mg oral tablet Start: 05/07/23 8:52:00 PM EDT, 1 tab, PO, q7days, Disp# 4 tab, Refills: 11, Pharmacy: [id number] Start Date: 05/07/23 Stop Date: 04/07/24 Status: Ordered Glucosamine & Chondroitin with MSM Start: 06/20/11 8:40:00 AM EST, 1 tab, PO, Daily, tab Start Date: 06/20/11 Status: Ordered multivitamin Start: 06/20/11 8:41:00 AM EST, 1 tab, PO, Daily, tab Start Date: 06/20/11 Status: Ordered mupirocin 2% topical ointment Start: 12/24/20 10:41:00 AM EDT, 1 appl, topical, tid, Disp# 22 g, Refills: 1, apply to finger, Pharmacy: [facility] Start Date: 12/24/20 Status: Ordered NexIUM 40 mg oral delayed release capsule Start: 12/08/14 2:14:00 PM EDT, 1 cap, PO, Daily, Disp# 30 cap, Refills: 2 Start Date: 12/08/14 Status: Ordered Nicotinamide ZCF Start: 04/15/20 12:55:00 PM EDT, See Instructions, 1 tab PO Daily Start Date: 04/15/20 Status: Ordered Probiotic Formula Start: 08/29/23 2:13:00 PM EST, 1 cap, PO, Daily Start Date: 08/29/23 Status: Ordered spironolactone 25 mg oral tablet Start: 09/14/23 10:38:00 AM EST, 1 tab, PO, Daily, Disp# 90 tab, Refills: 3, Pharmacy: [id number] Start Date: 09/14/23 Status: Ordered Symbicort 80 mcg-4.5 mcg/inh inhalation aerosol Start: 04/10/23 7:52:00 PM EDT, 2 puff, inhaled, bid, Disp# 1 each, Refills: 5, Pharmacy: [facility] Start Date: 04/10/23 Status: Ordered triamcinolone 0.1% topical cream Start: 03/03/22 10:20:00 AM EDT, 1 appl, topical, bid, Disp# 80 g, Refills: 0, Pharmacy: [facility] Start Date: 03/03/22 Status: Ordered valsartan 320 mg oral tablet Start: 03/30/23 4:47:00 PM EDT, 1 tab, PO, Daily, Disp# 90 tab, Refills: 3, discontinue losartan, Pharmacy: [facility] Start Date: 03/30/23 Status: Ordered Ventolin HFA 90 mcg/inh inhalation aerosol Start: 09/21/20 4:37:00 PM EDT, 2 puff, inhaled, qid, Disp# 3 each, Refills: 3, PRN: as needed for wheezing Start Date: 09/21/20 Stop Date: 09/16/21 Status: Ordered Vitamin D3 Start: 04/15/20 12:56:00 PM EDT, See Instructions, One daily Start Date: 04/15/20 Status: Ordered Mental Status 12/24/23 Barriers to Learning one year None evide nt Mandatory Health Literacy Documentation Yes Health Literacy Communication Barriers N ever Primary Language Kazakh Problem List Condition Confirmation Course Effective Dates Status H ealth Status Informant Allergic rhinitis Confirmed Active At risk for falls Confirmed Active Atrial tachycardia Confirmed Active Chills Confirmed Active Chronic sinusitis Confirmed Active Contact dermatitis Confirmed Active DDD (degenerative disc disease), cervical Confirmed Active DDD (degenerative disc disease), lumbar Confirmed Active DDD (degenerative disc disease), thoracic Confirmed Active Diverticulosis Confirmed Active Eczema Confirmed Active ESOPHAGEAL REFLUX Confirmed Active Family history of skin cancer 1 Confirmed Active History of solitary pulmonary nodule Confirmed Active History of basal cell cancer Confirmed Active History of SCC (squamous cell carcinoma) of skin Confirmed Active HTN Confirmed Active IFG (impaired fasting glucose) Confirmed Active Fecal incontinence Confirmed Active Lactose intolerance Confirmed Active 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 and unkle also Diagnosis Diagnosis Type Effective Dates Health Status Cl inical Service Informant Urinary frequency Discharge Diagnosis 12/24/23 Non-Specified Procedures Procedure Date Related Diagnosis Body Site Status Electrodesiccation with curettage 06/14/23 Completed Shave biopsy 1 05/09/23 Completed Mammogram - screening 2 01/22/23 C ompleted Shave biopsy and cauterizati on of skin 3 09/05/22 Completed Shave biopsy and cauterizati on of skin 4 06/06/22 Completed Shave biopsy and cauterization of skin 03/01/22 Completed Mammogram - screening 5 01/19/22 C ompleted Diagnostic mammogram 6 07/29/21 Co mpleted Shave biopsy and cauterizati on of skin 7 05/09/21 Completed DEXA (dual energy X-ray absorptiometry) of lateral spine 8 03/11/21 Completed Cervical spine X-ray 9 02/21/21 Co mpleted X-ray of lumbar spine and sa croiliac joints 10 02/21/21 Completed X-ray of thoracic spine 11 02/21/21 Completed Diagnostic mammogram 12 01/26/21 C ompleted Mammogram 13 01/18/21 Completed Colonoscopy 14, 15 01/12/21 Comple macrina Shave biopsy and cauterizati on of skin 16 12/02/20 Completed Electrodesiccation with curettage 08/31/20 Completed Electrodesiccation with curettage 08/31/20 Completed Shave biopsy and cauterizati on of skin 17 05/04/20 Completed Shave biopsy and cauterizati on of skin 18 05/04/20 Completed Mammogram - screening 19 01/13/20 Completed Mammogram - screening 20 01/13/20 Completed Shave biopsy and cauterization of skin 01/01/20 Completed Chest X-ray 21 12/02/19 Completed Cataract extraction right 06/10/19 Completed Cataract extraction left 06/02/19 Completed Shave biopsy and cauterizati on of skin 22 05/13/19 Completed Excision 01/30/19 Completed Bone density scan 23 01/21/19 Comp leted Shave biopsy and cauterizati on of skin 24 01/21/19 Completed Electrodesiccation with curettage 25 11/06/18 Completed Shave biopsy and cauterizati on of skin 26 10/30/18 Completed Excision - action 27 02/28/18 Comp leted Shave biopsy and cauterization of skin 02/13/18 Completed Shave biopsy and cauterization of skin 10/15/17 Completed Excision 08/16/17 Completed Duplex 28 05/21/17 Completed Spine [id number] 29 04/18/17 Com pleted Mammogram Right Diagnostic 30 03/29/17 Completed Electrodesiccation with curettage 03/15/17 Completed Shave biopsy and cauterization of skin 03/06/17 Completed Shave biopsy of skin 11/14/16 Comp leted Diagnostic Mammogram and US-Bilateral 09/25/16 Completed Mammogram 31 09/12/16 Completed Shave biopsy of skin 32 05/02/16 C ompleted Bone density scan 33 03/20/16 Comp leted Chest x-ray 34 02/25/16 Completed Colonoscopy 35, 36 11/18/15 Comple macrina Mammogram 37 09/06/15 Completed Shave biopsy and cauterizati on of skin 38 04/28/15 Completed Mammogram 39 09/01/14 Completed Shave biopsy and cauterizati on of skin 40 04/14/14 Completed XRAY right upper arm/shoulder 41 03/18/14 Completed Bone density scan 42, 43 01/06/14 Completed Mammogram 08/05/13 Completed excision 10/16/12 Completed sleep titration study 01/23/12 Com pleted Bone density scan 44 07/11/11 Comp leted Colonoscopy 45 05/02/10 Completed Appendectomy Completed Excision 46 Completed Hysterectomy Completed Mammogram - screening 47 Completed skin lesion removal Compl eted Tubal ligation Completed 1right lat forearm 2IMPRESSION: ACR BI-RADS CATEGORY 2: BENIGN There is no mammographic edvidence of malignancy. A 1 year screening mammogram is recommended. (01/23/2024) The patient will receive written notification of the results. 3ED&C 4with ed&c 5Impression: There is no mammographic evidence of malignancy. A 1 year screening mammogram is recommended. (01/20/2023) The patient will receive written notification of the results. 6No evidence of architectural distortion within the left lateral breast on the current exam. Findings are benign and consistent with normal fibroglandular tissue There is no mammographic evidence of malignancy in the left breast. Return to annual mammogram screening schedule is recommended. 7shave E D & C right lower leg, left calf 8T-score 4.6 10 year probability factor Major osteoporotic: 13.8% Hip: 3.5% 9Impression: No definite acute fracture is seen however moderate anterolisthesis of C4 on C5 and C6 on C7 is seen and associated with severe multilevel degenerative changes of the spine. Further evaluation with CT of the cervical spine is recommended 10Impression: No fractures within the lumbar spine Scoliosis and degenerative changes as described above. This is similar to the prior study. 11Impression: No fractures within the thoracic spine. S-shaped scoliosis of described above. Mild degenerative disc disease throughout the thoracic spine. 12Effeacement of the uestionable area of architecturlal distortin in the lateral left breast with supplemental tomosynthesis iamges, and no suspsicious sonographic correlated identifeid. This most likely represented normal toverlapping fibroglandular tissue, however, given dense breast mammographically and subtle appearnace of some disotrtions a short interval f/u left diagnostic tomosynthesis mammogram and possible US is recommended to ensure stability in 6 months. Another option discussed was contrast enhanced bilateral breast MRIto asses for any nonmass enhancement but we will opt for short f/u tomosynthesis mammogram imaging at this time. She is tentatively scheduled a f/u appt. prior to leaving. 13Impression: ACR BI-RADS CATEGORY 0: INCOMPLETED EVALUATION: NEED ADDITIONAL IMAGING EVALUATION. Thequestionable area of architectural distortion in the lateral left breast needs additional imaging evaluation. 14repeat colo 5 years. 15COLO to cecum, diverticulosis, hemorrhoids. 16right ankle 17right achilles shave E D & C 18right sup hull 19There is no mammographic evidence of malignancy. A 1 year screening mammogram is recommended. The patient will receive written notification of the results. 20Impression: There is no mammographic evidence of malignancy. A 1 year screening mammogram is recommended. (01/13/2021). 21IMPRESSION: Negative chest. 22with ED&C 23T-score -4.4 24A- left dorsal foot B- left calf 25left superior chest and right posterior neck 26A.) Right posterior neck B.) Left central breast C.) Left superior breast/chest 27carcinoma cutis left thign 28Aorto-lliac Duplex Patent abdominal aorta with no evidence of stenosis or anerurysm Patent right and left common iliac, external iliac, internal iliac and common femoral arteries withno evidence of stenosis or aneurysm. 29No acute bony abnormality is seen involving the lumbosacral spine Osteopenia with advanced lumbosacral spondylosis and scoliosis as above 30Impression; Partially circumscribed mass in the right upper outer quadrant is stable dating back [id number], and considered benign given long-term stability. There is no mammographic evidence of malignancy in the right breast. Return to annual mammogram screening schedule is recommended, due September 2017. The patient has been verbally notified of the results. 31There is a lobulated asymmetry in the lateral right breast that appears somewhat similar compared to prior mammograms. However, additional spot compression tomosynthesis views and possilby ultrasound are recommended to exclude an underlying mass. A vague 14mm asymmetry in the inferior left breast o n the MLO view may simpley represent normal overlapping tissue. However, spot compression tomosynthesis views and possibley ultrasound are recommended. No other suspicious mass, architectural distortion or cluster of microcalcifications is seen. 32Right upper mid arm 33-0.9 34Impression: Faint nodular density toward the right base. See Above. There is a hint of a faint nodular density toward the right base which may correspond to the nodule described on the prior CT scan. 35COLO to cecum, could not intubate TI, diveticulosis, sigmoid to AC, AC polyp cold snared could not retrieve specimen, repeat colo 5 years. 36path random AC and sigmoid normal. 37Normal 38right med malleolus, right dorsal hand 39Normal 40with curretage 41Negative 42Follow-up based on these results, a f/u exam is recommended in January 2016. 43T-score-2.8. 44T-score -1.2 45diverticulosis 46left upper leg 47Impression: There is no mammographic evidence of malignancy. A 1 year screening mammogram is recommended. Results Laboratory List Name Date Urine Chemstick POC Outpt 12/24/23 Most recent to oldest [Reference Range]: 1 Glucose Urine Dipstick Ref Range [negati ve] (12/24/23 11:05 AM) Bilirubin Urine Dipstick Ref Range [nega tive] (12/24/23 11:05 AM) Specific [place] Urine Ref Range [No Nor mal Defined] (12/24/23 11:05 AM) Protein Urine Dipstick Ref Range [negati ve] (12/24/23 11:05 AM) pH Urine Dipstick Ref Range [4.5 - 8.0] (12/24/23 11:05 AM) Ketones Urine Dipstick Ref Range [negati ve] (12/24/23 11:05 AM) Blood Urine Dipstick Ref Range [negative ] (12/24/23 11:05 AM) Urobilinogen Urine Dipstick Ref Range [0 .2 - 1.0 mg/dL] (12/24/23 11:05 AM) Nitrites Urine Dipstick Ref Range [negat fito] (12/24/23 11:05 AM) Leukocytes Urine Dipstick Ref Range [neg ative] (12/24/23 11:05 AM) Urine Chem Lot# [id number] (12/24/23 11:05 AM) Urine Chem Expiration Date (12/24/23 11:05 AM) U Leuk Est Small (12/24/23 11:05 AM) U Nitrite Negative (12/24/23 11:05 AM) U Urobilinogen 0.2 mg/dl (12/24/23 11:05 AM) U Protein Negative (12/24/23 11:05 AM) U pH 5.5 (12/24/23 11:05 AM) U Blood Moderate (12/24/23 11:05 AM) U Spec Grav 1.010 1 (12/24/23 11:05 AM) U Ketones Negative (12/24/23 11:05 AM) U Bili Negative (12/24/23 11:05 AM) U Gluc Negative (12/24/23 11:05 AM) U Appear Slightly cloudy (12/24/23 11:05 AM) Urine color urine dipstick Yellow (12/24/23 11:05 AM) 1Result Comment: Performed at: [address] [id number] Orders for Microbiology Reports Name Date Urine Culture (CULTURE, URINE) 12/24/23 Microbiology Reports TEST:Urine.Cx STATUS:Auth (Verified) BODY SITE: SOURCE:Urine COLLECTED DATE/TIME:12/24/23 4:01 PM Status FINAL 12/26/2023 Vital Signs Most recent to oldest [Reference Range]: 1 Patient Weight 58.7 kg (12/24/23 10:50 AM) Temperature [36.5-37.9 DegC] 37 DegC (12/24/23 10:50 AM) Heart Rate 76 bpm (12/24/23 10:50 AM) Respiratory Rate 16 br/min (12/24/23 10:50 AM) Blood Pressure 122/72mmHg (12/24/23 10:50 AM) Social History Social History Type Response Smoking Status Never smoked cigaret fatmata Sex Female Patient Care team information Care Team Personnel Name: GEORGIA Quiroga Tara Position: Nurse Pract - Family Med Member Role: Primary Care Provider Address: Address: [address] [place] [id number] Name: DO Tyler Jason D Position: Physician - Cardiology Member Role: Lifetime Relationship Address: Address: [address] [place] [id number] Care Team Related Persons Name: UZIEL HALE Address: home No Address Provided Name: GIA GARG Address: home No Address Provided
--- OUTSIDE RECORDS SUMMARY | 2023-12-27 12:55 | External Medical Summary | Continuity of Care Document ---
Author Name Unknown Organization [facility] [address] [facility] [address] [phone] Care Team Providers Care Aquaculture Director Name Role Phone Bianca Quiroga Primary Care Physician [phone] Encounter [facility] [id number] Date(s): 11/29/23 - 11/29/23 [facility] [address] [facility] [address] [phone] Encounter Diagnosis Actinic keratoses(Discharge Diagnosis) - 11/29/23 Discharge Disposition: Home or Self Care Attending Physician: MD Song Sara B Referring Physician: MD Song Sara B Allergies, Adverse Reactions, Alerts Substance Criticality Severity Reaction Reaction Severity Status Latex rash Active Allergy Not found in Search 1, 2, 3 Itching Active 1seasonal allergies 2itchy hands and eyes. sob at times with prolonged exposure 3allergic to print dye--itching on hands Immunizations Given and Recorded Vaccine Date Status Refusal Reason RSV vaccine preF3, recombinant 07/06/23 Recorded SARS-CoV-2 (COVID-19) mRNA-vacc - [id number] 04/30/23 Recorded pneumococcal 13-valent vaccine 04/23/23 Recorded [...] bivalent 2 04/12/22 R ecorded SARS-CoV-2 mRNA ([id number]) 3 11/04/21 Recorded SARS-CoV-2 (COVID-19) mRNA BNT-162b2 [...] Medications atorvastatin 20 mg oral tablet Start: 08/29/23 2:11:00 PM EST, 1 tab, PO, Daily, Disp# 90 tab, Refills: 3, Pharmacy: [facility] Start Date: 08/29/23 Stop Date: 08/23/24 Status: Ordered atorvastatin 20 mg oral tablet Start: 09/24/23 7:55:00 PM EDT, 1 tab, PO, Daily, Disp# 90 tab, Refills: 3, Pharmacy: [facility] Start Date: 09/24/23 Stop Date: 09/18/24 Status: Ordered Calcium 600+D Start: 06/20/11 8:36:00 AM EST, 1 tab, PO, Daily Start Date: 06/20/11 Status: Ordered Cardizem CD 180 mg/24 hours oral capsule, extended release Start: 02/15/23 11:23:00 AM EDT, 1 cap, PO, Daily, Disp# 90 cap, Refills: 3, Pharmacy: [facility] Start Date: 02/15/23 Status: Ordered Claritin Start: 04/14/16 9:00:00 AM EDT, 10 mg =, PO, Daily Start Date: 04/14/16 Status: Ordered Flax Seed Oil oral capsule Start: 06/20/11 8:37:00 AM EST, 1,200 mg =, PO, Daily Start Date: 06/20/11 Status: Ordered Flonase 50 mcg/inh nasal spray Start: 08/02/20 2:36:00 PM EST, 1 spray, each nostril, Daily, Disp# 16 g, Pharmacy: [facility] Start Date: 08/02/20 Status: Ordered Fosamax 70 mg oral tablet Start: 05/07/23 8:52:00 PM EDT, 1 tab, PO, q7days, Disp# 4 tab, Refills: 11, Pharmacy: [facility] Start Date: 05/07/23 Stop Date: 04/07/24 [...] g, Refills: 1, apply to finger, Pharmacy: [facility] Start Date: 12/24/20 Status: Ordered NexIUM [...] Daily, Disp# 90 tab, Refills: 3, Pharmacy: [facility] Start Date: 09/14/23 Status: Ordered Symbicort 80 mcg-4.5 mcg/inh inhalation aerosol Start: 04/10/23 7:52:00 PM EDT, 2 puff, inhaled, bid, Disp# 1 each, Refills: 5, Pharmacy: [facility] Start Date: 04/10/23 Status: Ordered triamcinolone 0.1% topical cream Start: 03/03/22 10:20:00 AM EDT, 1 appl, topical, bid, Disp# 80 g, Refills: 0, Pharmacy: [facility] Start Date: 03/03/22 Status: Ordered valsartan 320 mg oral tablet Start: 03/30/23 4:47:00 PM EDT, 1 tab, PO, Daily, Disp# 90 tab, Refills: 3, discontinue losartan, Pharmacy: [facility] Start Date: 03/30/23 Status: Ordered Ventolin HFA 90 mcg/inh inhalation aerosol Start: 09/21/20 4:37:00 PM EDT, 2 puff, inhaled, qid, Disp# 3 each, Refills: 3, PRN: as needed for wheezing Start Date: 09/21/20 Stop Date: 09/16/21 Status: Ordered Vitamin D3 Start: 04/15/20 12:56:00 PM EDT, See Instructions, One daily Start Date: 04/15/20 Status: Ordered Mental Status 11/29/23 Barriers to Learning one year None evide nt Mandatory Health Literacy Documentation Yes Communication Barrier Present No Health Literacy Communication Barriers N ever Primary Language Wolof Problem List Condition Confirmation Course Effective Dates [...] Dates Health Status Cl inical Service Informant Actinic keratoses Discharge Diagnosis 11/29/23 Non-Specified Procedures Procedure Date Related Diagnosis Body [...] 08/16/17 Completed Duplex 28 05/21/17 Completed Spine O-eas-Zvirsj 29 04/18/17 Com pleted Mammogram Right Diagnostic [...] upper outer quadrant is stable dating back to 2007, and considered benign given long-term stability. There is no mammographic evidence of malignancy in the right breast. Return to annual mammogram screening schedule is recommended, due September 2017. The patient has been verbally notified of the results. 31There is a lobulated asymmetry in the lateral right breast that appears somewhat similar compared to prior mammograms. However, additional spot compression tomosynthesis views and possilby ultrasoundare recommended to exclude an underlying mass. A vague 14mm asymmetry in the inferior left breast on the MLO view may simpley represent normal [...] A 1 year screening mammogram is recommended. Social History Social History Type Response Smoking Status Never smoked cigaret fatmata Sex Female .Outpt Proc * MD Duncan, Lynn Portlilo: PERFORM Event Display: .Outpt Proc Authored Date: [id number] OUTPATIENT PROCEDURE Name: ANAM SIEGEL Patient Number: [id number] : 1940 Date of Service: 11/29/2023 Patient here for 2 spots 1 is almost all gone away on the left hand she got a little AK but is verythin there. Otherwise a new AK right central chest. AK x2. Lesions treated with liquid nitrogen. Patient aware of possibility of infection, hypo or hyperpigmentation or scarring and did elect to proceed. They should inform me of any problems or recurrences post treatment. Care sheet given. She has her head to toe in January. Electronic Signature on File Electronically Reviewed/Signed by: Lynn Song MD Author Signature Dt/Tm:11/29/2023 12:58 PM Department of Dermatology [facility] Patient Care team information Care Team Personnel Name: GEORGIA Quiroga Tara Position: Nurse Pract - Family Med Member Role: Primary Care Provider Address: Address: [address] [place] [address] Name: DO Tyler Jason D Position: Physician - Cardiology Member Role: Lifetime Relationship Address: Address: [address] [place] [address] Care Team Related Persons Name: UZIEL HALE Address: home No Address Provided Name: GIA GARG Address: home No Address Provided
[2023-12-27] MEDS ORDERED: MECLIZINE 12.5 MG TAB PO PRN (13:54)
[2023-12-27] MEDS: LACTATED RINGER'S 1,000 ML IV SCH (14:00)
[2023-12-27 15:19] LABS: Appearance Urine Clear (Clear); Bacteria Urine Automated None Seen (None Seen); Bilirubin Urine Negative (Negative); Blood Urine Negative (Negative); Cast Urine Automated 0-2 /lpf (0-2); Color Urine Yellow; Glucose Urine UA Negative (Negative); Ketones Urine Negative (Negative); Leukocyte Esterase Urine 2+ (Negative); Nitrite Urine Negative (Negative); Protein Urine Negative (Negative); RBC Urine Automated 0-2 /hpf (0-2); Urobilinogen Urine Negative (Negative); pH Urine 5.5 (4.5-7.5)
[2023-12-27 15:25] LABS: Adenovirus PCR Not Detected (NotDetected); Bordetella parapertussis PCR Not Detected (NotDetected); Bordetella pertussis PCR Not Detected (NotDetected); Chlamydia pneumoniae PCR Not Detected (NotDetected); Coronavirus 229E PCR Not Detected (NotDetected); Coronavirus CoV-2 (COVID19)PCR Not Detected (NotDetected); Coronavirus HKU1 PCR Not Detected (NotDetected); Coronavirus NL63 PCR Not Detected (NotDetected); Coronavirus OC43PCR Not Detected (NotDetected); Human Metapneumovirus PCR Not Detected (NotDetected); Influenza A PCR Not Detected (NotDetected); Influenza B PCR Not Detected (NotDetected); Mycoplasma pneumoniae PCR Not Detected (NotDetected); Parainfluenza Virus 1 PCR Not Detected (NotDetected); Parainfluenza Virus 2 PCR Not Detected (NotDetected); Parainfluenza Virus 3 PCR Not Detected (NotDetected); Parainfluenza Virus 4 PCR Not Detected (NotDetected); Respiratory Syncytial VirusPCR Not Detected (NotDetected); Rhinovirus/Enterovirus PCR Not Detected (NotDetected)
--- NOTE | 2023-12-27 16:08 | XCELERA ---
[id number]
[2023-12-27] MEDS ORDERED: ALBUTEROL HFA 8 GM INHALER INH PRN (16:13)
[2023-12-27] MEDS ORDERED: ACETAMINOPHEN 325 MG TAB PO PRN (16:13)
[2023-12-27] MEDS ORDERED: ONDANSETRON INJ 2 MG/ML 2 ML VIAL IV PRN (16:13)
[2023-12-27] MEDS ORDERED: LORATADINE 10 MG TAB PO PRN (16:13)
[2023-12-27] MEDS: ALBUT/IPRATROP 3MG/0.5MG NEB 3 ML VIAL NEB PRN (17:44)
[2023-12-27 18:11] LABS: Calcium 8.5 mg/dl (8.6-10.3); Creatinine Clr Calc Pharmacy 30.9 ml/min; Est GFR (African American) 50.1 ml/min; Est GFR (Non-African American) 43.2 ml/min; Potassium 4.2 mmol/L (3.5-5.1)
[2023-12-27 18:17] LABS: Troponin I High Sensitivity 20.6 pg/ml (0-14)
[2023-12-27] MEDS: OPTIRAY 320 125ml IV ONE (18:35)
[2023-12-27] MEDS: FLUTICASONE/VILANTEROL 200/25MCG 14 PUFFS/INHALER INH SCH (18:39)
[2023-12-27] MEDS: MAGNESIUM SULFATE / D5W 1 GM/100 ML BAG IV ONE (18:39)
[2023-12-27 19:05] LABS: Magnesium 1.5 mg/dl (1.7-2.4)
--- NOTE | 2023-12-27 20:12 | CT Scan Report ---
Exam(s): CTA CHEST IV Amt: 117 cc opti 320 EXAM: CT Angiography Chest With Intravenous Contrast CLINICAL HISTORY: Evaluate for PE. TECHNIQUE: Axial computed tomographic angiography images of the chest with intravenous contrast. CTDI is 11.87 mGy and DLP is 461.71 mGy-cm. Automated exposure control was utilized for the study. A dose lowering technique was utilized adhering to the principles of ALARA. MIP reconstructed images were created and reviewed. COMPARISON: CT chest with contrast dated 06/19/12 FINDINGS: Limitations: There is diffuse respiratory artifact, which degrades image quality throughout the examination. Pulmonary arteries: Accounting for limitations with respiratory artifact, there is no evidence for pulmonary embolism. Several distal subsegmental pulmonary artery segments are of nondiagnostic quality. Aorta: The thoracic aorta is normal in size. There is heavy calcification of the aortic arch and descending aorta. No thoracic aortic aneurysm. Lungs: Subsegmental changes noted at the lung bases adjacent to the hemidiaphragms, particularly adjacent to the elevated right hemidiaphragm. 6 mm juxtapleural pulmonary nodule involving the lateral aspect of the posterior right lower lobe, similar in size to the previous examination. No follow-up required. No consolidation. Pleural space: Small volume bilateral pleural effusions layering posteriorly with the larger right pleural effusion subcentimeter in size. No loculation. No pneumothorax. Heart: Prominent cardiomegaly, similar in size to the previous examination. Moderate proximal LAD calcification. Mild pericardial effusion. There is reflux of contrast into the intrahepatic IVC and hepatic veins. Bones/joints: Multilevel degenerative changes involving the thumb asked spine. No acute osseous abnormality. No dislocation. Soft tissues: Unremarkable. Lymph nodes: Unremarkable. No enlarged lymph nodes. IMPRESSION: 1. Accounting for limitations with extensive respiratory artifact, there is no evidence for pulmonary embolism. Several distal subsegmental pulmonary artery segments are of nondiagnostic quality. 2. Subsegmental changes noted at the lung bases adjacent to the hemidiaphragms, particularly adjacent to the elevated right hemidiaphragm. Vonnie compressive atelectasis over basilar pneumonia. 3. Small volume bilateral pleural effusions layering posteriorly with the larger right pleural effusion subcentimeter in size. No loculation. 4. Prominent cardiomegaly, similar in size to the previous examination. Mild pericardial effusion. There is reflux of contrast into the intrahepatic IVC and hepatic veins. There is a nonspecific finding and may be related to rate of contrast administration. However, this finding is also seen with right heart dysfunction. Please correlate clinically. Electronically signed by: Tio Bloom MD 12/27/23 20:12 PM
[2023-12-27] MEDS: HEPARIN SOD 5,000 UNIT/0.5 ML VIAL SQ SCH (20:35)
[2023-12-28 07:24] LABS: Basophils # (auto) 0.01 K/uL (0.00-0.20); Basophils % (auto) 0.2 %; Eosinophils # (auto) 0.02 K/uL (0.00-0.50); Eosinophils % (auto) 0.4 %; Hematocrit (blood only) 31.8 % (37.0-47.0); Hemoglobin 10.8 g/dl (12.0-16.0); Immature Granulocytes # (auto) 0.04 K/uL (0.01-0.20); Immature Granulocytes % (auto) 0.7 %; Lymphocytes # (auto) 0.92 K/uL (1.20-3.40); Lymphocytes % (auto) 16.6 %; Mean Corpuscular Hemoglobin 29.8 pg (25.0-34.0); Mean Corpuscular Volume 87.8 fL (80.0-100.0); Mean Platelet Volume 8.9 fL (9.4-12.4); Monocytes # (auto) 0.44 K/uL (0.11-0.59); Monocytes % (auto) 7.9 %; Neutrophils # (auto) 4.12 K/uL (1.40-6.50); Neutrophils % (auto) 74.2 %; Platelet Count 198 K/uL (130-400); RDW Coefficient of Variation 13.2 % (11.5-14.5); RDW Standard Deviation 42.2 fL (36.4-46.3); Red Blood Count 3.62 M/uL (4.20-5.40); White Blood Count 5.55 K/ul (4.8-10.8)
[2023-12-28 07:51] LABS: BUN Creatinine Ratio 19.5 (10-20); Calcium 8.7 mg/dl (8.6-10.3); Creatinine Clr Calc Pharmacy 32.3 ml/min; Est GFR (African American) 52.8 ml/min; Est GFR (Non-African American) 45.5 ml/min; Potassium 4.2 mmol/L (3.5-5.1)
[2023-12-28] MEDS ORDERED: SPIRONOLACTONE 25 MG TAB PO SCH (09:00)
[2023-12-28] MEDS ORDERED: dilTIAZem HCL 180 MG CAPCR PO SCH (09:00)
--- NOTE | 2023-12-28 09:37 | Cardiology Consultation ---
Date of Consultation December 28, 2023 Assessment & Plan (1) Chest pain: Plan Impression: 1. Chest pain 2. Accelerated junctional rhythm with biphasic T waves and ST depressions laterally on EKG 3. Pulmonary effusions and mild pericardial effusion on CT 4.MERVAT Ms. Krishnamurthy's presentation was concerning for an acute coronary event given her chest discomfort and subsequent junctional rhythm. However, she is now pain free and in SR. Her troponin was only mildly elevated at 25 at it's peak. Her echo was without WMA or reduction in EF. We considered cardiac catheterization but at this point given the resolution of her symptoms and improvement in her EKG, it would be reasonable to watch and wait with close follow up outpatient and she was in agreement. Her CTA did show that she had pleural effusions. She does not have a history of heart failure and it's unclear if the reduction in CO from her junctional rhythm for 24 hours was entirely responsible. She is no longer sob and with return to SR this will hopefully resolve on it's own. She will need a repeat CXR and echo to follow outpatient. She had an MERVAT on admission possibly from dehydration and Bactrim. Her valsartan and spironolactone can be resumed now that her kidney function is normal with a follow up bmp in a week. Her diltiazem should be discontinued altogether. Plan was discussed with Dr. Tyler who is in agreement History of Present Illness Attending Physician: Dulce Maria Gould MD History of Present Illness Ms. Krishnamurthy presented to the hospital with chest pressure yesterday. She had gone for a walk in the hot weather the night before and developed chest pressure. It was still present when she woke up in the morning so she presented to the hospital. She was dizzy as well. She was found to be in a junctional rhythm. She is now chest pain free and in sinus rhythm. Allergies Allergy/AdvReac Type Severity Reaction Status Date / Time latex Allergy ITCHY RASH Verified 10/23/23 10:29 Home Medications Medication Instructions Recorded Confirmed Type albuterol sulfate 90 mcg/actuation 2 puff inhalation UD PRN Shortness 03/25/20 12/27/23 History aerosol inhaler Of Breath Or Wheezing atorvastatin 20 mg tablet (Lipitor) 20 mg PO DAILY 03/25/20 12/27/23 History diltiazem HCl 180 mg 180 mg PO HS 03/25/20 12/27/23 History capsule,extended release 24 hr (Cartia XT) loratadine 10 mg tablet (Claritin) 10 mg PO DAILY PRN ALLERGIES 03/25/20 12/27/23 History esomeprazole magnesium 40 mg 40 mg PO DAILY 03/02/22 12/27/23 History capsule,delayed release mupirocin 2 % topical ointment 1 applic topical UD 03/02/22 12/27/23 History triamcinolone acetonide 0.025 % 1 applic topical UD 03/02/22 12/27/23 History topical cream budesonide-formoterol HFA 160 2 puff inhalation UD 10/19/22 12/27/23 History mcg-4.5 mcg/actuation aerosol inhaler (Symbicort) alendronate 70 mg tablet 70 mg PO WK 12/27/23 12/27/23 History spironolactone 25 mg tablet 25 mg PO DAILY 12/27/23 12/27/23 History sulfamethoxazole 800 1 tab PO BID 12/27/23 12/27/23 History mg-trimethoprim 160 mg tablet valsartan 320 mg tablet 320 mg PO DAILY 12/27/23 12/27/23 History Patient History Medical History (Updated 12/27/23 @ 14:53 by Sterling Paz MD) Cataract Hx of mammogram Surgical History (Updated 03/03/22 @ 11:00 by Linda Renee) S/P tubal ligation Hx of appendectomy S/P skin biopsy H/O dilation and curettage Hx of colonoscopy H/O: hysterectomy Family History (Updated 03/03/22 @ 11:01 by Linda Renee) Sister Breast cancer Mother Cancer Hypertension Son Celiac disease Daughter Celiac disease Social History (Updated 03/03/22 @ 11:02 by Linda Renee) Smoking Status: Former smoker Hx Alcohol Use: No Hx Substance Use: No Preferred Language: Vietnamese Communication Ability: Effective Information Services Consultant Required: No Beliefs That Will Affect Care: None Current Living Situation: Alone current occupational status: employed Other Information That Helps Us Care for You: No Feels Safe at Home: Yes Safety Concerns: Feels Safe At This Time Assistive Devices: Glasses and Hearing Aid - Left Review of Systems Review of Systems: All systems reviewed & are unremarkable except as noted in HPI & below Physical Exam Constitutional: WD/WN, vitals as above Respiratory: normal respiratory effort, lungs clear to auscultation Cardiovascular: RRR, no murmur, no edema Skin: no rashes, warm and dry Neurologic: moves all extremities and awake Psychiatric: A+Ox3, euthymic affect Results & Data Vital Signs (Past 12 Hours) Vital Signs Temp Pulse Pulse Resp BP BP Pulse Ox 12/28/23 07:58 36.6 C 85 18 119/64 96 12/28/23 07:16 84 12/28/23 03:26 36.7 C 90 18 156/67 H 94 12/27/23 23:30 36.6 C 71 16 123/76 96 12/27/23 23:00 52 L O2 Del Method 12/28/23 07:58 Room Air 12/28/23 07:16 12/28/23 03:26 Room Air 12/27/23 23:30 Room Air 12/27/23 23:00
[2023-12-28] MEDS: ATORVASTATIN 20 MG TAB PO SCH (09:40)
[2023-12-28] MEDS: PANTOprazole 40 MG TAB PO SCH (09:40)
[2023-12-28 10:05] LABS: Troponin I High Sensitivity 23.4 pg/ml (0-14)
--- NOTE | 2023-12-28 10:49 | Electrocardiogram Report ---
Test Reason : Blood Pressure : / mmHG Vent. Rate : 066 BPM Atrial Rate : 000 BPM P-R Int : 000 ms QRS Dur : 102 ms QT Int : 406 ms P-R-T Axes : 000 -04 -09 degrees QTc Int : 425 ms Probable Junctional rhythm Poor R wave progression, consider anterior SC vs. lead placement vs. LVH Abnormal ECG No previous ECGs available Confirmed by Milton Jeff ([id number]) on 12/28/2023 10:49:03 AM Referred By: REFERRED SELF Confirmed By:Milton Jeff
--- NOTE | 2023-12-28 10:58 | Electrocardiogram Report ---
Test Reason : Blood Pressure : / mmHG Vent. Rate : 066 BPM Atrial Rate : 075 BPM P-R Int : 000 ms QRS Dur : 102 ms QT Int : 516 ms P-R-T Axes : 000 024 016 degrees QTc Int : 540 ms Probable Junctional rhythm Nonspecific ST abnormality Prolonged QT Abnormal ECG When compared with ECG of 27-DEC-2023 08:51, (unconfirmed) Criteria for Anterior infarct are no longer Present Nonspecific T wave abnormality has replaced inverted T waves in Inferior leads QT has lengthened Confirmed by Milton Jeff ([id number]) on 12/28/2023 10:58:34 AM Referred By: REFERRED SELF Confirmed By:Milton Jeff
--- NOTE | 2023-12-28 16:25 | Discharge Summary ---
Discharge Summary Date of Service December 28, 2023 Principal Dx & Hospital Course #1 = Principal Diagnosis (1) Chest pressure: P/w chest pressure that was constant for over 12 hours when she presented and associated with an accelerated junctional rhythm. ECG with some nonspecific ST and TW changes in lateral leads that resolved on ECG once she converted to a NSR ECHO without WMAs and with preserved EF Mildly elevated troponin peaked at 25 and likely demand iscemia from junctional rhythm CTA Chest neg for PE and not hypoxic, not tachycardic. With small pleural effusions possibly from MERVAT or junctional rhythm? All chest pressure symptoms went away after she converted to a NSR. Appreciate Cardiology consultation--> "presentation was concerning for an acute coronary event given her chest discomfort and subsequent junctional rhythm. However, she is now pain free and in SR. Her troponin was only mildly elevated at 25 at it's peak. Her echo was without WMA or reduction in EF. We considered cardiac catheterization but at this point given the resolution of her symptoms and improvement in her EKG, it would be reasonable to watch and wait with close follow up outpatient and she was in agreement." Her valsartan and spironolactone can be resumed now that her kidney function is normal with a follow up bmp in a week. This can be done with PCP and/or Cardiology Her diltiazem should be discontinued altogether. 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 q6h as needed for dizziness/vertigo (7) Asthma: gave refill of albuterol inhaler after discharge foat her request Plan Disposition: dc to home VTE PPx: Heparin 5000u SQ q12h Notes For Next Care Provider Check BMP in 1 week Needs repeat chest imaging and ECHO with Cardiology in 2 weeks Medication Changes From Visit Discontinue diltiazem Admission HPI Per Admitting Provider Swathi is a pleasant 83-year-old female with PMH of asthma, DDD, breast cancer, esophageal reflux, HLD, HTN, and scoliosis. She developed chest pressure and TANG around 9 PM on 12/25 while walking outside in the heat. She could feel the pressure building up in her chest, and this pressure remained while she was trying to sleep throughout the night. Patient cannot lie flat, and had to sleep on her side. She endorses both SOB at rest and with exertion. She does have a history of asthma, but notes that her rescue inhaler is . She does not use supplemental oxygen at home, or CPAP at night. She reports she took all of her regular morning medications this morning. She also notes that she has been taking Bactrim over the past few days for a UTI, and believes that her episode of diarrhea this morning was secondary to that. She also notes she had vertigo upon waking, as well as nausea and some dry heaves. She does have a history of vertigo, which she reports occurs when she gets sick. No falls, fainting, or injuries to the chest wall. She denies any recent sick contacts, but she does live in a senior home and is unsure. No PMH of COPD, DVT/PE, CA, or CVA. Patient denies smoking, tobacco use, or recent alcohol use. Patient's vitals are stable at time of admission. ED course: NSS 1000 mL IV ROS: Patient endorses dizziness upon standing (hx of vertigo), cold intolerance, chest pressure, SOB at rest and with exertion, orthopnea, dry cough (which patient attributes to allergies), nausea, dry heaves, diarrhea x 1 episode, burning with urination (patient is on bactrim), Patient denies fever, sweating, rashes, tickbites, fainting, chest pain, chest palpitations, pleuritic CP, hemoptysis, abdominal pain, vomiting, blood in stool/urine, melena, dysuria, saddle anesthesia, or numbness/tingling in the arms or legs. Discharge Exam Constitutional WD/WN, vitals as above Respiratory normal respiratory effort, lungs clear to auscultation Cardiovascular RRR, no murmur, no edema Psychiatric A+Ox3, euthymic affect Updated Medication List Medication Instructions Recorded Confirmed Type atorvastatin 20 mg tablet (Lipitor) 20 mg PO DAILY 03/25/20 12/27/23 History diltiazem HCl 180 mg 180 mg PO HS 03/25/20 12/27/23 History capsule,extended release 24 hr (Cartia XT) loratadine 10 mg tablet (Claritin) 10 mg PO DAILY PRN ALLERGIES 03/25/20 12/27/23 History esomeprazole magnesium 40 mg 40 mg PO DAILY 03/02/22 12/27/23 History capsule,delayed release mupirocin 2 % topical ointment 1 applic topical UD 03/02/22 12/27/23 History triamcinolone acetonide 0.025 % 1 applic topical UD 03/02/22 12/27/23 History topical cream budesonide-formoterol HFA 160 2 puff inhalation UD 10/19/22 12/27/23 History mcg-4.5 mcg/actuation aerosol inhaler (Symbicort) alendronate 70 mg tablet 70 mg PO WK 12/27/23 12/27/23 History spironolactone 25 mg tablet 25 mg PO DAILY 12/27/23 12/27/23 History sulfamethoxazole 800 1 tab PO BID 12/27/23 12/27/23 History mg-trimethoprim 160 mg tablet valsartan 320 mg tablet 320 mg PO DAILY 12/27/23 12/27/23 History albuterol sulfate 90 mcg/actuation 2 puff inhalation Q6H PRN 12/28/23 Rx aerosol inhaler Shortness Of Breath Or Wheezing #8.5 grams Hospital Stay Data Consultations 12/27/23 13:40 ED Decision to Admit Stat 12/27/23 16:52 Consult Cardiology Routine Diagnostic Imagining Performed 12/27/23 18:15 CT angio chest PE protocol Stat ECHO Pending Results Patient Have Any Pending Studies at Discharge: No Discharge Instructions Given to Patient (Per Discharging Provider) You were admitted with chest pressure and found to be in a junctional heart rhythm. You did not have a heart attack. You had a CT scan of your chest that did not show any blood clots in the lungs but did show a small amount of fluid around the bottoms of the lungs. This may have been related to your mild kidney injury from Bactrim or perhaps from being in the junctional rhythm. After your heart converted back to a sinus/normal rhythm, your symptoms resolved. Please STOP taking the diltiazem as this may have contributed to the junctional rhythm. Continue taking your other usual medicines. Follow up next week with Dr. Tyler-his office should reach out to you with your appointment date/time. Total Time Total Time Spent Total Time Spent (In Minutes): 35 min Total Time Includes: Examination of the Patient, Discharge Planning, Medication Reconciliation and Communication With Other Providers (Cardiology HUMAN RESOURCES BENEFITS ASSISTANT) Coding Level of Care Code 93202 INP/OBS DISCH >30 MIN Diagnoses Chest pressure R07.89 Junctional rhythm I49.8 MERVAT (acute kidney injury) N17.9 Hyponatremia E87.1 UTI (urinary tract infection) N39.0 Vertigo R42 Asthma J45.909
--- NOTE | 2023-12-28 16:36 | Electrocardiogram Report ---
Test Reason : Blood Pressure : / mmHG Vent. Rate : 087 BPM Atrial Rate : 087 BPM P-R Int : 188 ms QRS Dur : 088 ms QT Int : 378 ms P-R-T Axes : 061 010 015 degrees QTc Int : 454 ms Normal sinus rhythm Nonspecific ST and T wave abnormality Abnormal ECG When compared with ECG of 27-DEC-2023 18:14, Sinus rhythm has replaced Junctional rhythm Nonspecific T wave abnormality, worse in Anterior leads QT has shortened Confirmed by Milton Jeff ([id number]) on 12/28/2023 4:36:19 PM Referred By: REFERRED SELF Confirmed By:Milton Jeff
== END 2023-12-28 17:27 | disposition home or self-care (01) ==
LOC: 2W 08:37 → ED 08:37 → 2W 15:12